=== PATIENT | female | born 1975 | race Caucasian/White ===

== ENCOUNTER 2016-11-24 21:47 | Emergency (ER) | payer SELFPAY ==
[~2016-11-24] VITALS: Ht 157.5 cm; Wt 95.3 kg
[2016-11-24 21:51] VITALS: TEMP 36.6; Ht 157.5 cm; Wt 95.3 kg
[2016-11-24] MEDS ORDERED: ALBUT/IPRATROP 3MG/0.5MG NEB 3 ML VIAL INH STA (22:14)
[2016-11-24] MEDS ORDERED: HYDROCODONE/HOMATROPINE SYRUP 5MG/1.5MG 5ML UDP PO STA (22:14)
[2016-11-24] MEDS ORDERED: METHYLPREDNISOLONE 125 MG VIAL IV STA (22:14)
[2016-11-24] MEDS ORDERED: SODIUM CHLORIDE 0.9% 1000ML 500 ML IV STA (22:14)
[2016-11-24] MEDS ORDERED: SODIUM CHLORIDE 0.9% 1000ML 1,000 ML IV STA (22:14)
[2016-11-24 22:20] VITALS: O2SAT 95
--- NOTE | 2016-11-24 22:33 | EMERGENCY ROOM VISIT NOTE ---
History Report prepared by Kristaibalverto: Cristina Welch Under the Supervision of: Dr. Rogelio Benton M.D. First contact with patient: 21:58 Chief Complaint: COUGH Stated Complaint: COUGH,FLANK PAIN, SOB, BROKEN BLOOD VESSEL IN EYE Nursing Triage Summary: Cold symptoms for about 1 week. c/o pain to left side and ribs from forceful coughing. History of Present Illness The patient is a 41 year old female who presents to the Emergency Room with complaints of a persistent cough for the past 5 days. The cough was initially dry then became productive. She does not know what color the sputum is. The patient reports she has been coughing so hard she ruptured "several blood vessels" in her left eye and has vomited from her cough. She notes she has also developed back and rib pain from her cough. She admits to fevers that have been controlled with Ibuprofen. The patient is a current smoker but states she is trying to quit. She admits to a past history of bronchitis and states her doctor back in [place], where she recently moved here from, "started to talk to me about COPD". The patient denies any history of pneumonia. Source of History: patient Onset: 5 days [employer] Position: chest Quality: other (cough) Timing: other (persistent) Associated Symptoms: + fevers, + vomiting, + back pain (back pain and rib pain) Review of Systems See HPI for pertinent positives & negatives. A total of 10 systems reviewed and were otherwise negative. Past Medical & Surgical Medical Problems: (1) Anxiety (2) Depression (3) History of bronchitis (4) Hyperlipidemia (5) Hypertension (6) Kidney stones Surgical Problems: (1) History of appendectomy (2) History of cholecystectomy Family History Cancer Diabetes mellitus Heart disease Hypertension Lung disease Social History Smoking Status: Current Every Day Smoker Alcohol Use: none Drug Use: none Marital Status: single Housing Status: lives with family Occupation Status: employed Current/Historical Medications Scheduled Albuterol Hfa (Ventolin Hfa), 2-4 PUFFS INH Q4 Brexpiprazole (Rexulti), 0.5 MG PO DAILY Doxycycline Hyclate (Vibramycin), 100 MG PO BID Nebivolol Hcl (Bystolic), 5 MG PO DAILY Prednisone (Prednisone), 2 TAB PO DAILY Venlafaxine Hcl (Effexor Xr), 150 MG PO DAILY Scheduled PRN Clonazepam (Klonopin), 0.5 MG PO DAILY PRN for Anxiety/Panic Allergies Coded Allergies: Azithromycin (Verified Allergy, Severe, ANAPHYLAXIS, 11/24/16) Ciprofloxacin (Verified Allergy, Severe, ANAPHYLAXIS, 11/24/16) Clindamycin (Verified Allergy, Severe, ANAPHYLAXIS, 11/24/16) Penicillins (Verified Allergy, Severe, ANAPHYLAXIS, 11/24/16) Sulfa Antibiotics (Verified Allergy, Severe, ANAPHYLAXIS, 11/24/16) Bupropion (Verified Allergy, Intermediate, Tingling in head, 11/24/16) Flu Virus Vaccine (Verified Allergy, Intermediate, Breathing difficulty, nausea and vomiting, 11/24/16) Varenicline (Verified Allergy, Intermediate, Tingling in head, 11/24/16) Physical Exam Vital Signs Date Time Temp Pulse Resp B/P (MAP) Pulse Ox O2 Delivery O2 Flow Rate FiO2 11/24/16 22:53 70 18 99 Nebulizer 11/24/16 22:36 75 11/24/16 22:20 95 Room Air 11/24/16 22:03 Room Air 11/24/16 21:51 36.6 86 20 149/91 93 Room Air Physical Exam GENERAL: Patient is in no acute distress. Persistent dry cough noted, hoarse voice. HEENT: No acute trauma, normocephalic atraumatic, mucous membranes moist, no nasal congestion, no scleral icterus. Left eye subconjunctival hemorrhage. NECK: No stridor, no adenopathy, no meningismus, trachea is midline. LUNGS: Decreased breath sounds bilaterally, breath sounds are equal, wheezing bilaterally, no rhonchi. HEART: Without murmurs gallops or rubs, regular rate and rhythm. CHEST: Tenderness over the lateral ribs with compression. ABDOMEN: Soft, nontender, bowel sounds positive, no hernias, no peritonitis. EXTREMITIES: No cyanosis or edema, full range of motion of all the joints without pain or difficulty, no signs for acute trauma. NEUROLOGIC: Oriented x 3, no acute motor or sensory deficits, no focal weakness. SKIN: No rash, no jaundice, no diaphoresis. Medical Decision & Procedures ER Provider Diagnostic Interpretation: Radiology results as stated below per my review and radiologist interpretation: CHEST ONE VIEW PORTABLE CLINICAL HISTORY: Respiratory distress. Dyspnea. COMPARISON STUDY: No previous studies for comparison. FINDINGS: Lung volumes are normal. No pneumothorax or pleural effusion is present. Pulmonary vascularity is normal. Cardiac size is normal. No consolidation is identified. There is slight prominence of the right mediastinal contour within the expected location of the ascending aorta. The aortic knob and descending thoracic aorta appear normal. IMPRESSION: 1. No acute cardiopulmonary findings. 2. Slight prominence of the right mediastinal contour. This is likely due to normal structures although lymphadenopathy or vascular abnormality could appear similar. The caliber of the aortic arch and descending thoracic aorta appears normal. If persistent symptoms, a contrast-enhanced CT could be obtained. Electronically signed by: Jatinder Salas M.D. 11/24/2016 10:39 PM Laboratory Results 11/24/16 22:35 Red Blood Count 4.55, Mean Corpuscular Volume 98.5, Mean Corpuscular Hemoglobin 34.7, Mean Corpuscular Hemoglobin Concent 35.3, Mean Platelet Volume 9.4, Neutrophils (%) (Auto) 52.7, Lymphocytes (%) (Auto) 37.0, Monocytes (%) (Auto) 6.5, Eosinophils (%) (Auto) 2.1, Basophils (%) (Auto) 0.6, Neutrophils # (Auto) 8.50, Lymphocytes # (Auto) 5.97, Monocytes # (Auto) 1.05, Eosinophils # (Auto) 0.34, Basophils # (Auto) 0.09 11/24/16 22:35 Test 11/24/16 22:35 White Blood Count 16.13 K/uL (4.8-10.8) Red Blood Count 4.55 M/uL (4.2-5.4) Hemoglobin 15.8 g/dL (12.0-16.0) Hematocrit 44.8 % (37-47) Mean Corpuscular Volume 98.5 fL (80-100) Mean Corpuscular Hemoglobin 34.7 pg (25-34) Mean Corpuscular Hemoglobin Concent 35.3 g/dl (32-36) Platelet Count 280 K/uL (130-400) Mean Platelet Volume 9.4 fL (7.4-10.4) Neutrophils (%) (Auto) 52.7 % Lymphocytes (%) (Auto) 37.0 % Monocytes (%) (Auto) 6.5 % Eosinophils (%) (Auto) 2.1 % Basophils (%) (Auto) 0.6 % Neutrophils # (Auto) 8.50 K/uL (1.4-6.5) Lymphocytes # (Auto) 5.97 K/uL (1.2-3.4) Monocytes # (Auto) 1.05 K/uL (0.11-0.59) Eosinophils # (Auto) 0.34 K/uL (0-0.5) Basophils # (Auto) 0.09 K/uL (0-0.2) RDW Standard Deviation 47.9 fL (36.4-46.3) RDW Coefficient of Variation 13.3 % (11.5-14.5) Immature Granulocyte % (Auto) 1.1 % Immature Granulocyte # (Auto) 0.18 K/uL (0.00-0.02) Anion Gap 7.0 mmol/L (3-11) Est Creatinine Clear Calc Drug Dose 103.8 ml/min Estimated GFR () 112.1 Estimated GFR (Non- 96.8 BUN/Creatinine Ratio 15.0 (10-20) Calcium Level 8.8 mg/dl (8.5-10.1) Troponin I < 0.015 ng/ml (0-0.045) Laboratory results reviewed by me. Medications Administered Medications (Trade) Dose Ordered Sig/Kyle Route Start Time Stop Time Status Last Admin Dose Admin Sodium Chloride 500 ml @ 999 mls/hr Q31M STAT IV 11/24/16 22:14 11/24/16 22:44 DC 11/24/16 22:51 999 MLS/HR Albuterol/ Ipratropium (Duoneb) 3 ml NOW STAT INH 11/24/16 22:14 11/24/16 22:18 DC 11/24/16 22:50 3 ML Hydrocodone Bit/ Homatropine Methylb (Hycodan Syrup) 5 ml NOW STAT PO 11/24/16 22:14 11/24/16 22:18 DC 11/24/16 22:50 5 ML Methylprednisolone Sodium Succinate (Solu-Medrol IV) 80 mg NOW STAT IV 11/24/16 22:14 11/24/16 22:18 DC 11/24/16 22:51 80 MG Sodium Chloride 1,000 ml @ 200 mls/hr Q5H STAT IV 11/24/16 22:14 11/25/16 03:13 11/24/16 22:51 200 MLS/HR Acetaminophen (Tylenol Tab) 1,000 mg NOW STAT PO 11/24/16 23:07 11/24/16 23:08 DC 11/24/16 23:15 1,000 MG Doxycycline Hyclate (Vibramycin Cap) 100 mg ONE ONCE PO 11/24/16 23:15 11/24/16 23:16 DC 11/24/16 23:15 100 MG ECG Indication: other (cough) Rate (beats per minute): 78 Rhythm: normal sinus Findings: no acute ischemic change, no ectopy ED Course 2214: NSS 1000 ml @ 200 mls/hr IV, Solu-Medrol 80 mg IV, Hycodan Syrup 5 ml PO, DuoNeb 3 ml INH, NSS 500 ml @ 999 mls/hr IV. 2219: The patient was evaluated in room B9. A complete history and physical exam was performed. 2307: Nursing informed me the patient would like Tylenol for her rib pain. 2307: Acetaminophen 1000 mg PO. 2315: Vibramycin 100 mg PO. 2343: I reevaluated the patient. She is feeling much better. I discussed her results and discharge instructions and she verbalized complete understanding and agreement. I also discussed the importance of follow up with a primary care physician and she states she will make an appointment with her sister's current physician. 2345: Albuterol 2 puffs INH. 0000: Hycodan Elix 5/1.5 mg 1 homepack PO. Medical Decision The differential diagnoses considered include bronchitis, pneumonia, exacerbation of COPD, pneumothorax, cardiac ischemia, dehydration and renal failure. There is a moderate leukocytosis at 16,000, this is consistent with infection. No concerning anemia. Renal panel testing does not show renal failure or significant electrolyte abnormalities. EKG shows a normal sinus rhythm, no acute ischemia. Cardiac enzyme testing 1 is not consistent with acute cardiac injury. Chest film does not show any obvious pneumonia, some slight right- sided mediastinal fullness was suggested and follow up was recommended. There was no pneumothorax. Blood cultures were ordered and are pending. The patient presents with a week of coughing. She has felt feverish at home. She likely has an acute bronchitis with a flare of COPD. She has a lot of allergies to antibiotics. She is going to be placed on oral doxycycline, a dose was given here. She was given a DuoNeb, albuterol via MDI, IV Solu-Medrol and Hycodan cough syrup. She received oral Tylenol for her rib discomfort. The patient is not hypoxic or toxic. She has a sore chest from coughing, she has a left subconjunctival hemorrhage from coughing. I do think she is stable for discharge. She'll be on doxycycline for 2 weeks, albuterol, Hycodan cough syrup and a steroid burst. If she is worsening, she can return. She was encouraged to follow as an outpatient and to have a repeat chest film given the mediastinal findings. Medication Reconcilliation Current Medication List: was personally reviewed by me Blood Pressure Screening Patient's blood pressure: Elevated blood pressure Blood pressure disposition: Referred to PCP Impression Primary Impression: Acute bronchitis Additional Impression: Wheezing Scribe Attestation The scribe's documentation has been prepared under my direction and personally reviewed by me in its entirety. I confirm that the note above accurately reflects all work, treatment, procedures, and medical decision making performed by me. Departure Information Dispostion Home / Self-Care Prescriptions Albuterol Hfa (VENTOLIN HFA) 200 Puffs/50090 Mcg Aers 2-4 PUFFS INH Q4, #1 INHALER Prov: Rogelio Benton M.D. 11/24/16 Prednisone (Prednisone) 20 Mg Tab 2 TAB PO DAILY for 5 Days, #10 TAB Prov: Rogelio Benton M.D. 11/24/16 Doxycycline Hyclate (VIBRAMYCIN) 100 Mg Cap 100 MG PO BID for 14 Days, #28 CAP Prov: Rogelio Benton M.D. 11/24/16 Referrals No Doctor, Assigned (PCP) Patient Instructions My [facility] Additional Instructions motrin or tylenol for pain rest fluids prednisone as directed doxycycline 2x per day for 2 weeks albuterol 3 puffs every 4 hours see a emily campos for a recheck and recheck of your lungs/chest film hycodan 1 tsp every 4 hours for cough return if worsening or not improving Problem Qualifiers
[2016-11-24] MEDS ORDERED: VENL150C PO (22:38)
[2016-11-24] MEDS ORDERED: BYS/5 PO (22:38)
[2016-11-24] MEDS ORDERED: CLON0.5T3 PO (22:38)
[2016-11-24] MEDS ORDERED: BREX1TAB2 PO (22:38)
--- NOTE | 2016-11-24 22:40 | DIAGNOSTIC IMAGING REPORT ---
CHEST ONE VIEW PORTABLE CLINICAL HISTORY: Respiratory distress. Dyspnea. COMPARISON STUDY: No previous studies for comparison. FINDINGS: Lung volumes are normal. No pneumothorax or pleural effusion is present. Pulmonary vascularity is normal. Cardiac size is normal. No consolidation is identified. There is slight prominence of the right mediastinal contour within the expected location of the ascending aorta. The aortic knob and descending thoracic aorta appear normal. IMPRESSION: 1. No acute cardiopulmonary findings. 2. Slight prominence of the right mediastinal contour. This is likely due to normal structures although lymphadenopathy or vascular abnormality could appear similar. The caliber of the aortic arch and descending thoracic aorta appears normal. If persistent symptoms, a contrast-enhanced CT could be obtained. Electronically signed by: Jatinder Salas M.D. 11/24/2016 10:39 PM Dictated Date/Time: 11/24/2016 10:33 PM
[2016-11-24 23:01] LABS: HEMATOCRIT 44.8 % (37-47); MEAN CELL VOLUME 98.5 fL (80-100); MEAN CORPUSCULAR HEMOGLOBIN 34.7 pg (25-34); MEAN CORPUSCULAR HGB CONC 35.3 g/dl (32-36); MEAN PLATELET VOLUME 9.4 fL (7.4-10.4); PLATELET COUNT 280 K/uL (130-400); RED BLOOD COUNT 4.55 M/uL (4.2-5.4); WHITE BLOOD COUNT 16.13 K/uL (4.8-10.8)
[2016-11-24] MEDS ORDERED: ACETAMINOPHEN 500 MG TAB PO STA (23:07)
[2016-11-24] MEDS ORDERED: DOXYCYCLINE HYCLATE 100 MG CAP PO ONE (23:15)
[2016-11-24 23:17] LABS: BLOOD UREA NITROGEN 11 mg/dl (7-18); CALCIUM 8.8 mg/dl (8.5-10.1); CARBON DIOXIDE 29 mmol/L (21-32); CHLORIDE 103 mmol/L (98-107); CREATININE 0.76 mg/dl (0.60-1.20); GLUCOSE 140 mg/dl (70-99); POTASSIUM 3.8 mmol/L (3.5-5.1); SODIUM 139 mmol/L (136-145)
[2016-11-24 23:36] LABS: BASO % 0.6 %; BASO ABS # 0.09 K/uL (0-0.2); COMPLETE YES; EOS % 2.1 %; IG% 1.1 %; LYMPH ABS # 5.97 K/uL (1.2-3.4); MONO % 6.5 %; NEUT % 52.7 %
[2016-11-24] MEDS ORDERED: ALBUTEROL HFA 8 GM INHALER INH ONE (23:45)
[2016-11-24] MEDS ORDERED: VNTHFA/IN INH (23:50)
[2016-11-24] MEDS ORDERED: PRED20TA PO (23:50)
[2016-11-24] MEDS ORDERED: DOXY100C PO (23:50)
[2016-11-25] MEDS ORDERED: HYCODAN 60ML BOTTLE HOMEPACK PO ONE
[2016-11-25 00:13] VITALS: BP 157/95; PULSE 84; O2SAT 93
== END 2016-11-25 00:13 | disposition home or self-care (01) ==
LOC: C.EDB 21:49
DX: J20.9 Acute bronchitis, unspecified (principal); R06.2 Wheezing; I10 Essential (primary) hypertension; F32.9 Major depressive disorder, single episode, unspecified; F41.9 Anxiety disorder, unspecified; F17.200 Nicotine dependence, unspecified, uncomplicated; Z87.442 Personal history of urinary calculi; Z90.49 Acquired absence of other specified parts of digestive tract; Z90.89 Acquired absence of other organs; Z83.3 Family history of diabetes mellitus; Z82.49 Family history of ischemic heart disease and other diseases of the circulatory system; Z79.899 Other long term (current) drug therapy

== ENCOUNTER 2017-07-04 22:57 | Emergency (ER) | payer OTHER ==
[~2017-07-04] VITALS: Ht 157.5 cm; Wt 93.2 kg
[~2017-07-04 22:57] MED LIST: BREX1TAB2 PO; BYS/5 PO; CLON0.5T3 PO; VENL150C PO
[2017-07-04 23:07] VITALS: TEMP 36.5; Ht 157.5 cm; Wt 93.2 kg
[2017-07-04] MEDS ORDERED: DiphenhydrAMINE HCL 50 MG/ML VIAL IV STA (23:32)
[2017-07-04] MEDS ORDERED: METOCLOPRAMIDE HCL INJ 5 MG/ML 2 ML VIAL IV STA (23:32)
[2017-07-04] MEDS ORDERED: DIAZEPAM INJ 5 MG/ML 2 ML CARP IV STA (23:32)
[2017-07-04] MEDS ORDERED: DEXAMETHASONE **PF** INJ 10 MG/ML VIAL IV ONE (23:45)
[2017-07-05 00:01] VITALS: O2SAT 96
[2017-07-05 00:08] LABS: HEMATOCRIT 46.1 % (37-47); HEMOGLOBIN 16.1 g/dL (12.0-16.0); MEAN CELL VOLUME 98.1 fL (80-100); MEAN CORPUSCULAR HEMOGLOBIN 34.3 pg (25-34); MEAN CORPUSCULAR HGB CONC 34.9 g/dl (32-36); MEAN PLATELET VOLUME 9.4 fL (7.4-10.4); PLATELET COUNT 275 K/uL (130-400); RED CELL DISTRIBUTION WIDTH SD 46.6 fL (36.4-46.3); WHITE BLOOD COUNT 14.69 K/uL (4.8-10.8)
[2017-07-05 00:26] LABS: ALBUMIN 3.7 gm/dl (3.4-5.0); ALT/SGPT 39 U/L (12-78); BLOOD UREA NITROGEN 18 mg/dl (7-18); CALCIUM 8.8 mg/dl (8.5-10.1); CARBON DIOXIDE 28 mmol/L (21-32); CREATININE 0.86 mg/dl (0.60-1.20); GLUCOSE 149 mg/dl (70-99); POTASSIUM 3.8 mmol/L (3.5-5.1); SODIUM 136 mmol/L (136-145)
[2017-07-05 00:31] LABS: ALKALINE PHOSPHATASE 68 U/L (45-117); AST/SGOT 25 U/L (15-37); TOTAL PROTEIN 7.4 gm/dl (6.4-8.2)
[2017-07-05 01:06] LABS: BASO % 0.3 %; BASO ABS # 0.05 K/uL (0-0.2); EOS ABS # 0.44 K/uL (0-0.5); IG# 0.07 K/uL (0.00-0.02); LYMPH % 39.5 %; MONO % 4.8 %; MONO ABS # 0.71 K/uL (0.11-0.59); NEUT % 51.9 %; NEUT ABS # 7.62 K/uL (1.4-6.5)
[2017-07-05 01:34] VITALS: BP 130/86; PULSE 70; O2SAT 94
[2017-07-05] MEDS ORDERED: METH4PAK PO (01:57)
--- NOTE | 2017-07-05 04:49 | EMERGENCY ROOM VISIT NOTE ---
History First contact with patient: 23:19 Chief Complaint: HEADACHE Stated Complaint: HEADACHE, NAUSEA, VOMITING, STIFF NECK, DIZZY History of Present Illness The patient is a 41 year old female who presents to the Emergency Room with complaints of headache for the past few days he woke up today with left-sided neck pain that radiates down her arm described as aching, ranging in severity 6 out of 10. Movement makes it worse nothing makes it better. Patient denies chest pain, dyspnea, fever, chills, vomiting, diarrhea, weakness, flulike illness, cold symptoms, localized weakness, abdominal pain, balance problems. Patient is tolerating p.o. fluids and food. Review of Systems An 10 system review of systems was completed with positives and pertinent negatives listed in the HPI. Past Medical/Surgical History Medical Problems: (1) Anxiety (2) Depression (3) History of bronchitis (4) Hyperlipidemia (5) Hypertension (6) Kidney stones Surgical Problems: (1) History of appendectomy (2) History of cholecystectomy Family History Cancer Diabetes mellitus Heart disease Hypertension Lung disease Social History Smoking Status: Former Smoker Alcohol Use: none Drug Use: none Marital Status: single Housing Status: lives with family Occupation Status: employed Current/Historical Medications Scheduled Brexpiprazole (Rexulti), 0.5 MG PO DAILY Methylprednisolone (Medrol Dosepak), 0 PO DAILY Nebivolol Hcl (Bystolic), 5 MG PO DAILY Venlafaxine Hcl (Effexor Xr), 150 MG PO DAILY Scheduled PRN Clonazepam (Klonopin), 0.5 MG PO DAILY PRN for Anxiety/Panic Physical Exam Vital Signs Date Time Temp Pulse Resp B/P (MAP) Pulse Ox O2 Delivery O2 Flow Rate FiO2 07/05/17 01:34 70 20 130/86 94 Room Air 07/05/17 00:58 67 20 108/77 93 Room Air 07/05/17 00:01 96 Room Air 07/05/17 00:00 64 07/04/17 23:07 36.5 73 20 150/90 98 Room Air Physical Exam VITALS: Vitals are noted on the nurse's note and reviewed by myself. Vital signs stable. GENERAL: Pleasant female, in no acute distress, nondiaphoretic, well-developed well-nourished. SKIN: The skin was without rashes, erythema, edema, or bruising. There is no tenting of the skin. Capillary reflex less than 2 seconds. HEAD: Normocephalic atraumatic. EARS: External auditory canals clear, tympanic membranes pearly sevilla without erythema or effusion bilaterally. EYES: Pupils equal round and reactive to light and accommodation. Conjunctivae without injection, sclerae without icterus. Extraocular movements intact. NOSE: Patent, turbinates without inflammation or discharge. No sinus tenderness. MOUTH: Mucous membranes moist. Pharynx without erythema or exudate. Uvula midline. Airway patent. Tongue does not deviate. NECK: Supple without nuchal rigidity. No lymphadenopathy. No thyromegaly. Cervical spine is nontender. No JVD. No meningeal signs HEART: Regular rate and rhythm without murmurs gallops or rubs. LUNGS: Clear to auscultation bilaterally without wheezes, rales or rhonchi. No retractions or accessory muscle use. ABDOMEN: Positive bowel sounds x 4. Normal tympanic percussion. Soft, nontender, without masses or organomegaly. Hennessy sign negative. No guarding or rebound tenderness. No CVA tenderness MUSCULOSKELETAL: No muscle atrophy, erythema, or edema noted. NEURO: Patient was alert and oriented to person place and time. Normal sensation to light and sharp touch. No focal neurological deficits. Medical Decision & Procedures Laboratory Results 07/04/17 23:54 Red Blood Count 4.70, Mean Corpuscular Volume 98.1, Mean Corpuscular Hemoglobin 34.3, Mean Corpuscular Hemoglobin Concent 34.9, Mean Platelet Volume 9.4, Neutrophils (%) (Auto) 51.9, Lymphocytes (%) (Auto) 39.5, Monocytes (%) (Auto) 4.8, Eosinophils (%) (Auto) 3.0, Basophils (%) (Auto) 0.3, Neutrophils # (Auto) 7.62, Lymphocytes # (Auto) 5.80, Monocytes # (Auto) 0.71, Eosinophils # (Auto) 0.44, Basophils # (Auto) 0.05 07/04/17 23:54 Test 07/04/17 23:54 07/04/17 23:56 White Blood Count 14.69 K/uL (4.8-10.8) Red Blood Count 4.70 M/uL (4.2-5.4) Hemoglobin 16.1 g/dL (12.0-16.0) Hematocrit 46.1 % (37-47) Mean Corpuscular Volume 98.1 fL (80-100) Mean Corpuscular Hemoglobin 34.3 pg (25-34) Mean Corpuscular Hemoglobin Concent 34.9 g/dl (32-36) Platelet Count 275 K/uL (130-400) Mean Platelet Volume 9.4 fL (7.4-10.4) Neutrophils (%) (Auto) 51.9 % Lymphocytes (%) (Auto) 39.5 % Monocytes (%) (Auto) 4.8 % Eosinophils (%) (Auto) 3.0 % Basophils (%) (Auto) 0.3 % Neutrophils # (Auto) 7.62 K/uL (1.4-6.5) Lymphocytes # (Auto) 5.80 K/uL (1.2-3.4) Monocytes # (Auto) 0.71 K/uL (0.11-0.59) Eosinophils # (Auto) 0.44 K/uL (0-0.5) Basophils # (Auto) 0.05 K/uL (0-0.2) RDW Standard Deviation 46.6 fL (36.4-46.3) RDW Coefficient of Variation 13.0 % (11.5-14.5) Immature Granulocyte % (Auto) 0.5 % Immature Granulocyte # (Auto) 0.07 K/uL (0.00-0.02) Red Blood Cell Morphology Unremarkable Anion Gap 7.0 mmol/L (3-11) Est Creatinine Clear Calc Drug Dose 90.6 ml/min Estimated GFR () 96.6 Estimated GFR (Non- 83.3 BUN/Creatinine Ratio 20.3 (10-20) Calcium Level 8.8 mg/dl (8.5-10.1) Total Bilirubin 0.4 mg/dl (0.2-1) Direct Bilirubin < 0.1 mg/dl (0-0.2) Aspartate Amino Transf (AST/SGOT) 25 U/L (15-37) Alanine Aminotransferase (ALT/SGPT) 39 U/L (12-78) Alkaline Phosphatase 68 U/L (45-117) Troponin I < 0.015 ng/ml (0-0.045) Total Protein 7.4 gm/dl (6.4-8.2) Albumin 3.7 gm/dl (3.4-5.0) Human Chorionic Gonadotropin, Qual NEG (NEG) Bedside Troponin I < 0.030 ng/ml (0-0.045) Medications Administered Medications (Trade) Dose Ordered Sig/Kyle Route Start Time Stop Time Status Last Admin Dose Admin Dexamethasone Sodium Phosphate (Dexamethasone Inj Pf) 10 mg NOW ONCE IV 07/04/17 23:45 07/04/17 23:46 DC 07/04/17 23:57 10 MG Diazepam (Valium Inj) 5 mg NOW STAT IV 07/04/17 23:32 07/04/17 23:34 DC 07/04/17 23:55 5 MG Metoclopramide HCl (Reglan Inj) 10 mg NOW STAT IV 07/04/17 23:32 07/04/17 23:34 DC 07/04/17 23:57 10 MG Diphenhydramine HCl (Benadryl Inj) 12.5 mg NOW STAT IV 07/04/17 23:32 07/04/17 23:34 DC 07/04/17 23:57 12.5 MG ED Course Prior records/ancillary studies reviewed. Additional history obtained from family Triage Nursing notes reviewed. The patient's history was concerning for headache and neck pain down left arm. Differential diagnosis: Etiologies such as migraine headache, tension headache, cervical radiculopathy, meningitis, sinusitis, CO exposure, ICH, SAH, infection, tumor, headache, sinus thrombosis, arterial dissection, as well as others were entertained. Physical examination findings: As above. Non-focal. ER treatment provided: Decadron, Reglan, Benadryl On reassessment the patient felt better. Diagnostics interpreted by me: ECG: Normal sinus, normal intervals, no acute ST-T wave changes. Impression normal sinus rhythm interpreted by myself The labs revealed mild leukocytosis, negative troponin. Hyperglycemia without DKA Imaging studies: Head and cervical CT negative for intracranial bleed or fracture per radiology, incidental findings. This appears to be consistent with tension headache with cervical radiculopathy. Patient had no signs of meningitis. She is well-appearing. She is on 100% after being medicated as above. She is advised to rest, stay well-hydrated and follow-up family can a few days here in the ER sooner for headache, fevers, neck stiffness, worsening signs or symptoms or as needed. Patient was neurovascularly and neurologically intact. She is well-appearing.. By the evaluation outlined above emergent etiologies such as meningitis, sinusitis, CO exposure, ICH, SAH, infection, temporal arteritis, tumor, sinus thrombosis, arterial dissection, as well as others were deemed relatively unlikely. The pt informed about the findings as listed above. All questions were answered and pleased with the treatment. Return instructions were outlined and the patient was discharged in stable condition. Outpatient prescription management: Medrol Dosepak Referral: The patient was referred back to their primary care physician for follow-up in 2 to 3 days for a recheck of the current condition. Case reviewed with my attending The chart was completed utilizing [employer] voice recognition software. Grammatical errors, random word insertions, pronoun errors, and incomplete sentences are an occassional consequence of this system due to software limitations, ambient noise, and hardware issues. Any formal questions or concerns about the content, text, or information contained within the body of this dictation should be directly addressed to the physician zoning assistant for clarification. Medical Decision As above Medication Reconcilliation Current Medication List: was personally reviewed by me Blood Pressure Screening Patient's blood pressure: Normal blood pressure Impression Primary Impression: Cervical radiculopathy Additional Impression: Tension headache Departure Information Dispostion Home / Self-Care Condition GOOD Prescriptions Methylprednisolone (MEDROL DOSEPAK) 4 Mg Britton 0 PO DAILY, #1 PKT Prov: Felisha Tidwell .LEO 07/05/17 Forms HOME CARE DOCUMENTATION FORM, Work Instructions, Return To Work: 3 days IMPORTANT VISIT INFORMATION Patient Instructions Headaches Tension, My [facility], ED Cervical Radiculopathy Additional Instructions DO NOT drive, drink alcohol, operate machinery, or perform dangerous activities today. You were given medications in the ER that can affect your ability to safely function or operate a vehicle. Medrol Dosepak as directed. Rest today in a quiet, peaceful, dark environment and get a full 8-10 hrs of sleep tonight. Avoid loud noises, smoke/smoking, alcohol, bright lights, stress, or physical exertion today to minimize the chance the headache may return. Continue current medications. Ibuprofen(Motrin, Advil) may be used for fever or pain. Use 600mg every six hours as needed. Take with food. Avoid using more than 2400mg in a 24 hour period. Do not use 2400mg per day for more than three consecutive days without physician direction. Prolonged inappropriate use can lead to stomach upset or ulcers. (AND/OR) Acetaminophen(Tylenol) may be used for fever or pain. Use 1000mg every six hours as needed. Avoid using more than 3000mg in a 24 hour period. Return to the ER for passing out, worsening headache, vision problems, neck stiffness/pain, fevers, vomiting, worsening of your condition, or as needed. Follow up with your primary physician in 2-3 days for a recheck of your current condition. Work Instructions Return To Work: 3 days Problem Qualifiers
--- NOTE | 2017-07-05 06:34 | DIAGNOSTIC IMAGING REPORT ---
CT HEAD WITHOUT CONTRAST (CT) CLINICAL HISTORY: Headache vomiting stiff neck dizziness nausea COMPARISON STUDY: No previous studies for comparison. TECHNIQUE: Axial CT of the brain is performed from the vertex to the skull base. IV contrast was not administered for this examination. A dose lowering technique was utilized adhering to the principles of ALARA. CT DOSE: FINDINGS: No intra or extra-axial mass lesions are visualized. There is no CT evidence of acute cortical infarction. There is no evidence of midline shift. There is no acute hemorrhage. No calvarial fractures are visualized. There is a prominent pineal region calcification There is no evidence of pathologic ventricular dilatation. There is no evidence of acute sinusitis. There is a partially calcified subcutaneous nodule within the left occipital scalp, likely representing a sebaceous cyst. IMPRESSION: No acute intracranial findings Electronically signed by: Vishal Way M.D. 07/05/2017 6:32 AM Dictated Date/Time: 07/05/2017 6:31 AM
--- NOTE | 2017-07-05 06:46 | DIAGNOSTIC IMAGING REPORT ---
CHEST ONE VIEW PORTABLE HISTORY: 41 years-old Female CHEST PAIN acute atypical chest pain COMPARISON: Chest radiograph 11/24/2016 TECHNIQUE: Portable AP view of the chest FINDINGS: Cardiac silhouette is within normal limits. Minimal prominence of the right mediastinal contours unchanged favoring Normal mediastinal structures. There is no pneumothorax, pleural effusion, focal airspace consolidation or overt pulmonary edema. The bones of the chest appear grossly intact. IMPRESSION: No acute process. The above report was generated using voice recognition software. It may contain grammatical, syntax or spelling errors. Electronically signed by: Billy Gaming M.D. 07/05/2017 6:44 AM Dictated Date/Time: 07/05/2017 6:43 AM
--- NOTE | 2017-07-05 07:09 | DIAGNOSTIC IMAGING REPORT ---
CERVICAL SPINE CT CT DOSE: 1101.56 mGy.cm HISTORY: neck pain down left arm TECHNIQUE: Multiaxial CT images of the cervical spine were performed and reformatted in the sagittal and coronal plane without the use of contrast. A dose lowering technique was utilized adhering to the principles of ALARA. COMPARISON: None. FINDINGS: No fractures. No subluxation. Prevertebral soft tissues and the C1-C2 interval are intact. No pneumothorax. Minimal degenerative disc disease at C5-C6 and C6-C7. Straightening of the cervical spine. IMPRESSION: No fractures within the cervical spine. Electronically signed by: Hua Bey M.D. 07/05/2017 7:08 AM Dictated Date/Time: 07/05/2017 7:05 AM
--- NOTE | 2017-07-05 17:02 | Pharmacy Progress Note ---
ED Pharmacist Progress Note Date of Service: Jul 05, 2017. Patient called inquiring about outpatient prescriptions - she notes she believed she was being prescribed both a muscle relaxant and an anti-nausea medication, but the only prescription she had was for methylprednisolone. Counseled that although methylprednisolone is not a muscle "relaxer", it can help with musculoskeletal pain. I reviewed Светлана Tidwell's note and I did not find an intent to prescribe an anti- nausea medication as an outpatient, although she did receive Benadyrl and metoclopramide while in the ED. Case discussed w Dr. Mar - cannot provide an anti-emetic at this time without further evaluation as no intent to originally prescribe one was found. Noted that the patient can obtain Benadryl po OTC. Counseled that prescription for anti-emetic could be obtained either from PCP, urgent care, or repeat visit at ED. Patient acknowledged understanding.
== END 2017-07-05 02:06 | disposition home or self-care (01) ==
LOC: C.EDB 22:59
DX: M54.12 Radiculopathy, cervical region (principal); G44.209 Tension-type headache, unspecified, not intractable; F41.9 Anxiety disorder, unspecified; F32.9 Major depressive disorder, single episode, unspecified; E78.5 Hyperlipidemia, unspecified; I10 Essential (primary) hypertension; Z79.899 Other long term (current) drug therapy; Z87.09 Personal history of other diseases of the respiratory system; Z87.442 Personal history of urinary calculi; Z87.891 Personal history of nicotine dependence; Z82.49 Family history of ischemic heart disease and other diseases of the circulatory system; Z83.3 Family history of diabetes mellitus; Z83.6 Family history of other diseases of the respiratory system